=== PATIENT | male | born 1970 | race Caucasian/White ===

== ENCOUNTER 2023-12-22 09:00 | Inpatient (IN) | payer BC, SELFPAY ==
[2023-12-22] VITALS (35 sets, daily range): BP systolic 136–167; BP diastolic 70–82; PULSE 70–156; TEMP 36.7–37.5; O2SAT 93–115; BMI 27.4; BMI 30.6
--- NOTE | 2023-12-22 09:20 | ECG_ITS ---
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
--- NOTE | 2023-12-22 09:20 | XR_ITS ---
The [address] [address] Patient Name: LIDIA KHAN MRN: [id number] date: 1970 Sex: M Assigned Patient Location: ER Current Patient Location: ER Accession/Order Number: [id number] Exam Date: 12/22/2023 09:30 Report Date: 12/22/2023 10:58 At the request of: MO KHANNA Procedure: XR chest 1V EXAM: XR chest 1V HISTORY: tachy COMPARISON: None FINDINGS/IMPRESSION: 1. Lungs are clear 2. No pneumothorax. No pleural effusion. 3. Heart size and mediastinal contours are normal 4. No acute osseous abnormality Electronically authenticated by: SHAWNA LOMBARDO Date: 12/22/2023 10:58
[2023-12-22] MEDS: ASPIRIN 81 MG TAB.CHEW 162 MG PO (09:29)
[2023-12-22] MEDS: 0.9 % SODIUM CHLORIDE 1,000 ML 1000 ML IV ×2 (09:29→09:51)
[2023-12-22] MEDS: ACETAMINOPHEN 325 MG TABLET 650 MG PO (09:30)
--- NOTE | 2023-12-22 09:33 | CT_ITS ---
The [address] [address] Patient Name: LIDIA KHAN MRN: [id number] date: 1970 Sex: M Assigned Patient Location: ER Current Patient Location: ER Accession/Order Number: [id number] Exam Date: 12/22/2023 09:42 Report Date: 12/22/2023 11:06 At the request of: MO KHANNA Procedure: CT head/brain wo con EXAM: CT head/brain wo con HISTORY: headache COMPARISON: None available at the time of dictation. TECHNIQUE: Axial unenhanced CT images were obtained through the brain. Individualized dose optimization technique was used for the performed procedure by employing the following: Automated exposure control, adjustment of the mA and/or kV according to patient's size, and/or the use of the iterative construction technique. Coronal and sagittal reformats were performed. FINDINGS: No acute intracranial abnormality. No acute infarct, hemorrhage or mass. Hyperdensity at the anterior cortex of the bilateral frontal lobes, likely from beam hardening artifact. (5/20). No midline shift. Carmichael-white matter differentiation is preserved. Ventricles and sulci are normal in size. No acute osseous abnormality. Mucosal thickening of the ethmoid air cells. Mucosal thickening of the frontal sinus. Mastoid air cells are open. Orbits are normal. CT/CT head/brain wo con IMPRESSION: 1. No definitive acute intracranial abnormality. No acute intracranial infarct visualized by this modality. (MRI is more sensitive). No acute intracranial hemorrhage 2. Focal hyperdensity at the anterior cortex of the bilateral frontal lobes, likely from beam hardening artifact. (5/20). A follow-up CT in 4 hours could more definitively confirm. Electronically authenticated by: SHAWNA LOMBARDO Date: 12/22/2023 11:06
--- NOTE | 2023-12-22 09:33 | ECG_ITS ---
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
[2023-12-22 09:35] LABS: Hematocrit 43.7 % (42.0-54.0); Hemoglobin 14.7 g/dL (14.0-18.0); Mean Corpuscular HGB Conc 33.6 g/dL (29.9-35.2); Mean Corpuscular Hemoglobin 32.1 pg (25.9-34.0); Mean Corpuscular Volume 95.4 fL (80.0-94.0); Mean Platelet Volume 11.2 fL (9.5-13.5); Platelet Count 122 10^3/uL (150-450); Red Blood Count 4.58 10^6/uL (4.70-6.10); Red Cell Distribution Width 12.7 % (11.0-15.0); White Blood Count 6.3 10^3/uL (4.0-11.0)
--- NOTE | 2023-12-22 09:36 | ED.GENADUL1 ---
HPI HPI - General Adult General Chief complaint: Arrhythmia/Palpitations Stated complaint: FAST HEART RATE/ GENERAL WEAKNESS Time Seen by Provider: 12/22/23 09:19 Source: patient Mode of arrival: walk-in Limitations: no limitations History of Present Illness HPI narrative: Patient is a 53-year-old male who is presenting to the ER today with chief complaint of diffuse headache, anxiousness, heart palpitations, nausea and vomiting. Patient was at work when this occurred. Patient lives [place], he is working locally and stays in a motel during the week. Patient states that he drinks a couple beers before bedtime, no other excessive alcohol use. Patient states no illicit drug use, patient does smoke cigarettes. Patient has no chest heaviness or tightness. Patient does have abdominal hernia, patient has no significant abdominal pain. No neck pain. No history of A-fib or atrial flutter. Patient is type I diabetic. Patient was diagnosed at the age of 16 with type 1 diabetes. Patient has no rash. No other traveling of the state or country besides coming from [place] to work. Patient states he does not feel like he is in DKA, he has had DKA before. No bowel or bladder changes. Patient stated he went to bed and felt normal last night, no issues. Patient stated he did not feel perfect this morning, but a lot of his symptoms developed at work this morning. Patient denies any type of fall, no head injury. Patient's headache was not the worse headache of her life, not sudden onset, not thunderclap in nature. All systems are negative except as noted/marked. All systems reviewed and otherwise negative. Nurses note and vital signs reviewed and patient is not hypoxic. General: The patient appears well and in no apparent distress. Patient is resting comfortably on cart. Patient is not toxic, lethargic, or listless. Patient appears anxious to Cristiana RN, not sitting still, also complaining of headache to Cristiana RN. Skin: Warm, dry, no pallor noted. There is no rash noted. No petechiae, purpura. Head: Normocephalic, atraumatic, no tenderness to palpation to bilateral frontal maxillary sinuses. Full cervical range of motion with no meningeal signs or symptoms, no nuchal rigidity. Eye: Normal conjunctiva, no drainage, EOMI. PERRL Ears, Nose, Mouth, and Throat: oral mucosa is moist. Nares patent. Mouth without vesicles. Cardiovascular: Tachycardic regular Rate and Rhythm, no murmur, gallop, rub Respiratory: Patient is in no distress, no accessory muscle use, lungs are clear to auscultation, no wheezing, rales or rhonchi Back: Patient has moderate lower paralumbar soft tissue and paralumbar tenderness to palpation, no midline lumbar tenderness to palpation. No signs of abscess. No step-off. Non-tender, no CVA tenderness bilaterally to percussion. No CT LS midline pain GI: No peritoneal signs, no pulsatile mass. No tenderness to palpation, no masses appreciated. No rebound, guarding, or rigidity noted. No distention Musculoskeletal: Patient has full range of motion of all of the extremities, no motor, sensory, or focal neurological deficits Neurological: A&O x4, normal speech Psychiatric: Cooperative Related Data Home Medications ?Medication ?Instructions ?Recorded ?Confirmed blood-glucose sensor (Snapcious G6 12/22/23 12/22/23 Sensor device) blood-glucose transmitter (Snapcious 12/22/23 12/22/23 G6 Transmitter device) clonidine HCl 0.3 mg tablet 0.3 mg PO BID 12/22/23 12/22/23 omeprazole 20 mg capsule,delayed 20 mg PO DAILY 12/22/23 12/22/23 release prazosin 1 mg capsule 1 mg PO BID 12/22/23 12/22/23 Allergies Allergy/AdvReac Type Severity Reaction Status Date / Time No Known Drug Allergies Allergy Verified 12/22/23 09:04 Opioid HPI Opioid Management Most Recent Opioid Data: Last Pain Scale 8 12/22/23 09:30 Last MAR Pain Assessment 12/22/23 09:30 PFSH PFSH Social History Little interest or pleasure in doing things: not at all Feeling down, depressed, or hopeless: not at all Exam Constitutional Vital Signs, click to edit/add: Last Vital Signs Temp 98.1 F 12/22/23 09:04 Pulse 132 H 12/22/23 11:20 Resp 24 H 12/22/23 11:20 BP 144/74 H 12/22/23 11:15 Pulse Ox 96 12/22/23 11:20 O2 Del Method Room Air 12/22/23 09:20 Course Vital Signs Vital signs: Vital Signs Temperature 98.1 F 12/22/23 09:04 Pulse Rate 148 H 12/22/23 09:04 Respiratory Rate 18 12/22/23 09:04 Blood Pressure 146/73 H 12/22/23 09:04 Pulse Oximetry 98 12/22/23 09:04 Oxygen Delivery Method Room Air 12/22/23 09:04 Temperature 98.1 F 12/22/23 09:04 Pulse Rate 132 H 12/22/23 11:20 Respiratory Rate 24 H 12/22/23 11:20 Blood Pressure 144/74 H 12/22/23 11:15 Pulse Oximetry 96 12/22/23 11:20 Oxygen Delivery Method Room Air 12/22/23 09:20 Medical Decision Making MDM Narrative Medical decision making narrative: Patient's heart rates in the 140s, patient will be given 2 L of IV fluid, patient slightly anxious, IV Ativan has been ordered. CT of the head was ordered along with DKA workup. Patient is insulin diabetic. Patient does not believe that he is in DKA. 1045 Patient has had 2 L of IV fluid, 1 mg of Ativan. Patient's heart rate remains in the 140s, it has not changed. Will not be given a bolus of Cardizem, patient may be in a flutter. Patient's magnesium is 1.3, patient has received IV magnesium treatment as well. Patient's acetone negative, pH within normal limits, 1145 I have spoken to Dr. Hernandez, patient is admitted to the intensive care unit for tachycardia with not a clear etiology. Patient magnesium was 1.3, he had IV replacement of magnesium. Patient was given a dose of Ativan. Patient alcohol level was 0.086. Patient only admitted to drinking 2 beers before bedtime, patient could be going through alcohol withdrawal. Patient came to the ER from work. Patient has had a significant workup with no significant findings. Patient is currently receiving his third liter of IV fluid. I had discussed with Dr. Hernandez possible giving him a dose of Lopressor, she will also consult cardiology. Patient will be admitted to the ICU. Urine drug screen is still pending at admission. If urine drug screen shows no cocaine, Dr. Hernandez may give IV Lopressor second EKG is done, Sinus tachycardia at 129. Normal axis deviation. No acute ST elevation, no acute ectopy. QTc of 384 EKG appears to be sinus tachycardia, not completely excluding a flutter. P waves noted. Critical care time 35 minutes exclusive from separate billable procedures that were performed. The following was considered in the determination of critical care but not limited to the level of medical decision making, intensive cardiac and/or respiratory monitoring, frequent vital sign monitoring, evaluation of laboratory studies, evaluation of radiographic studies, oxygen monitoring, and constant monitoring and speaking to family at bedside Lab Data Lab results reviewed: Yes I reviewed the patient's lab results Labs: Lab Results 12/22/23 12/22/23 Range/Units 09:15 09:40 WBC 6.3 (4.0-11.0) 10^3/uL RBC 4.58 L (4.70-6.10) 10^6/uL Hgb 14.7 (14.0-18.0) g/dL Hct 43.7 (42.0-54.0) % MCV 95.4 H (80.0-94.0) fL MCH 32.1 (25.9-34.0) pg MCHC 33.6 (29.9-35.2) g/dL RDW 12.7 (11.0-15.0) % Plt Count 122 L (150-450) 10^3/uL MPV 11.2 (9.5-13.5) fL Seg Neuts % (Manual) 85.0 H (43.0-75.0) Lymphocytes % (Manual) 9.0 L (20.5-60.0) % Monocytes % (Manual) 6.0 (1.7-12.0) % Eosinophils % (Manual) 0.0 L (0.9-7.0) % Basophils % (Manual) 0.0 L (0.2-2.0) % Neutrophils # (Manual) 5.35 (1.4-6.5) 10^3/uL Lymphocytes # (Manual) 0.56 L (1.20-3.80) 10^3/uL Monocytes # (Manual) 0.37 (0.30-0.80) 10^3/uL Eosinophils # (Manual) 0.00 (0.00-0.70) 10^3/uL Basophils # (Manual) 0.00 (0.00-0.10) 10^3/uL PT 9.8 (9.0-11.6) sec INR <0.93 APTT 22.8 (22.3-36.2) sec D-Dimer 0.59 (<=0.59) mg/L FEU VBG pH 7.330 (7.330-7.430) VBG pCO2 30.0 L (40.0-52.0) mmHg Sodium 138 (136-145) mmol/L Potassium 4.5 (3.5-5.1) mmol/L Chloride 98 (98-107) mmol/L Carbon Dioxide 20.0 L (21.0-32.0) mmol/L Anion Gap 24.5 BUN 14.0 (7.0-18.0) mg/dL Creatinine 0.98 (0.70-1.30) mg/dL Est GFR ( Amer) >60 (>=60) Est GFR (Non-Af Amer) >60 (>=60) BUN/Creatinine Ratio 14.3 Glucose 313 H (74-106) mg/dL Calcium 9.5 (8.5-10.1) mg/dL Magnesium 1.3 L (1.8-2.4) mg/dL Total Bilirubin 0.8 (0.2-1.0) mg/dL AST 32 (15-37) U/L ALT 19 (16-63) U/L Alkaline Phosphatase 59 (46-116) U/L Total Creatine Kinase 110 (39-308) U/L Troponin I High Sens 33.2 (4.0-76.1) pg/mL NT-Pro-B Natriuret Pep 159.0 (<=900.0) pg/mL Total Protein 7.0 (6.4-8.2) g/dL Albumin 3.9 (3.4-5.0) g/dL Globulin 3.1 g/dL Albumin/Globulin Ratio 1.3 TSH 0.614 (0.358-3.740) uIU/mL Ethanol Quant 86 mg/dL Acetone, Qual Negative (NEGATIVE) SARS-CoV-2 Ag (CV2AG) Negative (NEGATIVE) ECG Data Attestation: I personally reviewed and interpreted this ECG as follows: (EKG interpretation. Sinus tachycardia at 146 beats a minute. Normal axis deviation. No acute ST elevation, no acute ectopy. QTc of 366) Discharge Plan Discharge Chief Complaint: Arrhythmia/Palpitations Clinical Impression: Palpitations, Sinus tachycardia, Hypomagnesemia Patient Disposition: Admitted As Inpatient Time of Disposition Decision: 11:35
[2023-12-22 09:42] LABS: D Dimer 0.59 mg/L FEU (<=0.59); Partial Thromboplastin Time 22.8 sec (22.3-36.2); Prothrombin Time 9.8 sec (9.0-11.6)
[2023-12-22] MEDS: MAGNESIUM SULFATE IN WATER 2 GM/50 ML PREMIX IV (09:51)
[2023-12-22] MEDS: ONDANSETRON PF 4 MG/2 ML VIAL IV ×2 (09:51→15:51)
[2023-12-22] MEDS: LORAZEPAM 2 MG/ML VIAL 1 MG IV (09:51)
[2023-12-22 10:01] LABS: Acetone NEGATIVE (NEGATIVE); Alanine Aminotransferase 19 U/L (16-63); Albumin Globulin Ratio 1.3; Albumin Level 3.9 g/dL (3.4-5.0); Alkaline Phosphatase 59 U/L (46-116); Anion Gap 24.5; Aspartate Amino Transferase 32 U/L (15-37); BUN Creatinine Ratio 14.3; Bilirubin Total 0.8 mg/dL (0.2-1.0); Calcium 9.5 mg/dL (8.5-10.1); Chloride 98 mmol/L (98-107); Estimated GFR (African America >60 (>=60); Estimated GFR (Non-African Ame >60 (>=60); Globulin 3.1 g/dL; Glucose 313 mg/dL (74-106); Potassium 4.5 mmol/L (3.5-5.1); Sodium 138 mmol/L (136-145); Thyroid Stimulating Hormone 0.614 uIU/mL (0.358-3.740); Troponin I High Sensitivity 33.2 pg/mL (4.0-76.1)
[2023-12-22 10:02] LABS: Internal Control Within Normal Limits; SARS-CoV-2 Ag NEGATIVE (NEGATIVE)
[2023-12-22 10:03] LABS: Creatine Kinase 110 U/L (39-308); Magnesium 1.3 mg/dL (1.8-2.4)
[2023-12-22 10:09] LABS: Lymphocytes Absolute Manual 0.56 10^3/uL (1.20-3.80); Monocytes Absolute Manual 0.37 10^3/uL (0.30-0.80); Segmented Neut Absolute Manual 5.35 10^3/uL (1.4-6.5)
[2023-12-22 10:20] LABS: INR <0.93
[2023-12-22] MEDS: DILTIAZEM HCL 25 MG/5 ML VIAL 15 MG IV (10:48)
[2023-12-22 11:17] LABS: Ethanol 86 mg/dL
[2023-12-22] MEDS: 0.9 % SODIUM CHLORIDE 1,000 ML 999 ML IV (11:20)
[2023-12-22 11:48] LABS: Amphetamine Screen Urine NEGATIVE (NEGATIVE); Barbiturates Screen Urine NEGATIVE (NEGATIVE); Benzodiazepines Screen Urine NEGATIVE (NEGATIVE); Buprenorphine Screen Urine NEGATIVE (NEGATIVE); Cannabinoid Screen Urine NEGATIVE (NEGATIVE); Cocaine Screen Urine NEGATIVE (NEGATIVE); Methadone Screen Urine NEGATIVE (NEGATIVE); Methamphetamines Screen Urine NEGATIVE (NEGATIVE); Opiate Screen Urine NEGATIVE (NEGATIVE); Oxycodone Screen Urine NEGATIVE (NEGATIVE); Phencyclidine Screen Urine NEGATIVE (NEGATIVE); Tricyclic Antidepressant Urine NEGATIVE (NEGATIVE)
--- NOTE | 2023-12-22 12:05 | P.HP_ITS ---
HPI H&P: HPI History of Present Illness Chief complaint: FAST HEART RATE/ GENERAL WEAKNESS/ TACHYCARDIA Narrative: Patient is a 53 y.o white male with past medical history of IDDM type 1 with insulin pump, HTN, Alcoholism, tobacco use, who presented to the ER today after 3 episodes of vomiting, heart palpitations/heart racing, nausea, headache. 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 He has been staying in a hotel in [place] during this time. 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 He has been drinking heavier than usual since he is away from home. He denies any other illicit drug use. He denies any heart or lung problems. Both parents are from heart related issues. ER findings: Glucose 313 with anion Gap 24, D-dimer normal range, Cr 0.98, mg 1.3, trop 33, proBNP 159, TSH normal, Blood Acetone negative, Blood alcohol level was 86, UDS negative, Chest X-ray and CT head negative. Patient had HR 140's, given Cardizem bolus, Lopressor 5mg x 1 and 3L of IVF. Covid and flu testing are negative. Opioid HPI Opioid Management Most Recent Pain and Opioid Data: Last Pain Scale 3 12/22/23 13:00 Last Pain Assessment 12/22/23 13:00 Last MAR Pain Assessment 12/22/23 09:30 Last ORT Total Score 3 12/22/23 12:45 Last ORT Risk Category Low Risk 12/22/23 12:45 Ur Phencyclidine Scrn Negative (NEGATIVE) 12/22/23 11:14 Review of Systems ROS Narrative ROS: a complete review of systems were reviewed with patient and are positive as below or listed in History of Chief Complaint. General:fever, chills, night sweats Head: headache, no trauma, no visual changes Skin: no reported rashes, itching or sores Eyes: no blurriness of vision Ears: no reported hearing loss, vertigo, earache, or tinnitus Throat: no sore throat, hoarseness, swelling of neck, or tongue pain Heart: no chest pain Lungs: no shortness of breath or cough GI: no diarrhea but vomiting/nausea Urinary: no urinary urgency, frequency or pain Neuro: no numbness or tingling HEM: no bleeding issues or bruising ENDO: no thyroid problems Psych: no anxiety or depression PFSH PFSH Medical History (Updated 12/22/23 @ 14:09 by Alicja Hernandez DO) Essential (primary) hypertension ?I10 - Essential (primary) hypertension (ICD-10) DKA, type 1 ?E10.10 - Type 1 diabetes mellitus with ketoacidosis without coma (ICD-10) Type 1 diabetes ?E10.9 - Type 1 diabetes mellitus without complications (ICD-10) Social History Highest level of school completed/degree received: high school graduate Little interest or pleasure in doing things: not at all Feeling down, depressed, or hopeless: not at all Meds Home Medications and Allergies Home Medications ?Medication ?Instructions ?Recorded ?Confirmed ?Type blood-glucose sensor (Dexcom G6 12/22/23 12/22/23 History Sensor device) blood-glucose transmitter (Dexcom 12/22/23 12/22/23 History G6 Transmitter device) clonidine HCl 0.3 mg tablet 0.3 mg PO BID 12/22/23 12/22/23 History insulin pump cart,automated,BT 12/22/23 12/22/23 History (Omnipod 5 G6 Pods (Gen 5) subcutaneous cartridge) omeprazole 20 mg capsule,delayed 20 mg PO DAILY 12/22/23 12/22/23 History release prazosin 1 mg capsule 1 mg PO BID 12/22/23 12/22/23 History Allergies Allergy/AdvReac Type Severity Reaction Status Date / Time No Known Drug Allergies Allergy Verified 12/22/23 09:04 Exam Narrative Exam Narrative: General: Patient is alert, and oriented to person, place and time with normal affect, proper hygiene, appears tremulous on exam Skin: no visible rashes, or ulcers Head: atraumatic, acephalic Eyes: PERRLA, no nystagmus present, conjunctiva clear, no scleral icterus Ears: normal Tympanic Membrane, normal gross auditory acuity Nose: symmetric, no discharge, no maxillary or frontal sinus tenderness Mouth/Throat: no erythema, exudate, or tonsillar enlargement,poor dentition Neck: no masses palpated, normal thyroid Heart: increased rate and normal rhythm, no murmurs/rubs/gallops Lungs: no audible wheezes, crackles and normal breath sounds all lung damico Abdomen: Normal audible bowel sounds, no distension, No palpable masses, no organomegaly, slight diffuse tenderness with palpation Musculoskeletal: no swelling bilateral lower extremities Neuro: CN II-X grossly intact Constitutional Vital Signs, click to edit/add: Last Vital Signs Temp 98.1 F 12/22/23 09:04 Pulse 132 H 12/22/23 11:20 Resp 24 H 12/22/23 11:20 BP 144/74 H 12/22/23 11:15 Pulse Ox 96 12/22/23 11:20 O2 Del Method Room Air 12/22/23 09:20 Results Labs Labs: Short CBC 12/22/23 Range/Units 09:15 WBC 6.3 (4.0-11.0) 10^3/uL Hgb 14.7 (14.0-18.0) g/dL Hct 43.7 (42.0-54.0) % Plt Count 122 L (150-450) 10^3/uL BMP 12/22/23 09:15 Sodium 138 Potassium 4.5 Chloride 98 Carbon Dioxide 20.0 L BUN 14.0 Creatinine 0.98 Glucose 313 H Calcium 9.5 Cardiac Enzymes 12/22/23 Range/Units 09:15 Total Creatine Kinase 110 (39-308) U/L Liver Function 12/22/23 Range/Units 09:15 Total Bilirubin 0.8 (0.2-1.0) mg/dL AST 32 (15-37) U/L ALT 19 (16-63) U/L Alkaline Phosphatase 59 (46-116) U/L Albumin 3.9 (3.4-5.0) g/dL ABG ABG results: 12/22/23 09:40 VBG pH 7.330 VBG pCO2 30.0 L Assessment and Plan Assessment and Plan (1) Dehydration: Assessment and Plan: resusitative IVF, patient has received 3L, will continue with LR @150. Lactate normal, WBC's normal and renal function. Most likely from virus causing n/v. Covid and flu negative. monitor electrolytes (2) Hyperglycemia due to type 1 diabetes mellitus: Assessment and Plan: Patient with insulin pump, will continue infusions for now, recheck labs in 1 hour, if AG still elevated despite IVF will stop pump and place on insulin drip. could be approaching Hyperosmolar Hyperglycemia state, blood negative for ketones/acetones but glucose was 313. Patient on clears, recheck ha1c in the morning (3) Alcoholism: Assessment and Plan: etoh level 86. Seizure precautions, CIWA score q4 hours with PRN ATivan IV. cont inue folate and thiamine (4) Sinus tachycardia: Assessment and Plan: BP stable, restart clonidine, was given Lopressor, cardizem. Could be alcohol withdrawal or significant dehydration and HHS. Monitor. EKG showed sinus tachycardia. Trop and proBNP normal. UDS negative for cocaine or amphetamines. (5) Hypomagnesemia: Assessment and Plan: replaced IV, recheck (6) Essential (primary) hypertension: Assessment and Plan: continue clonidine. Plan Patient is a full code Lovenox for DVT prophylaxis Patient is inpatient status and is expected to stay 2-3 days to treat his hyperglycemia and dehydration.
[2023-12-22] MEDS: METOPROLOL TARTRATE 5 MG/5 ML VIAL IVP (12:08)
--- NOTE | 2023-12-22 12:21 | PC.NURSE ---
In to reassess patient, this RN asked patient how many drinks were drank last night. Pt states I don't know maybe 3-4 beers This RN asked if that is normal or if liquor is drank too. Pt states I typically have a few beers with a few shots of vodka. This RN asked patient if thats what was drank last night and patient states you know now that you mention it, I do remember going across the street to the bar for a few drinks. Pt states having 4 beers with a few shots of vodka, unsure of exact amount.
[2023-12-22 12:32] LABS: Influenza Virus A Antigen Negative; Influenza Virus B Antigen Negative; Internal Control Within Normal Limits
[2023-12-22] MEDS: LACTATED RINGER'S SOLUTION 1,000 ML 150 ML IV ×2 (13:00→19:35)
[2023-12-22] MEDS: MULTIVIT INFUSN,ADULT 4,VIT K 10 ML, FOLIC ACID 1 MG, THIAMINE HCL 100 MG in DEXTROSE 5... 250 ML IV (14:06)
[2023-12-22 15:37] LABS: Alanine Aminotransferase 20 U/L (16-63); Albumin Globulin Ratio 1.2; Albumin Level 3.6 g/dL (3.4-5.0); Alkaline Phosphatase 57 U/L (46-116); Anion Gap 22.2; Aspartate Amino Transferase 29 U/L (15-37); BUN Creatinine Ratio 15.5; Bilirubin Total 1.3 mg/dL (0.2-1.0); Calcium 8.7 mg/dL (8.5-10.1); Carbon Dioxide 18.3 mmol/L (21.0-32.0); Chloride 99 mmol/L (98-107); Estimated GFR (African America >60 (>=60); Estimated GFR (Non-African Ame >60 (>=60); Glucose 382 mg/dL (74-106); Potassium 5.5 mmol/L (3.5-5.1); Sodium 134 mmol/L (136-145); Total Protein 6.6 g/dL (6.4-8.2)
[2023-12-22 15:48] LABS: Magnesium 1.8 mg/dL (1.8-2.4)
[2023-12-22 15:49] LABS: Troponin I High Sensitivity 81.1 pg/mL (4.0-76.1)
[2023-12-22] MEDS: INSULIN REGULAR IN 0.9 % NACL 100 UNIT/100 ML PLAST..BAG 9.13 UNIT IV (16:40)
[2023-12-22 17:04] LABS: Glucometer 369 mg/dL (74-106)
[2023-12-22 18:06] LABS: Glucometer 319 mg/dL (74-106)
[2023-12-22] MEDS: CLONIDINE HCL 0.1 MG TABLET 0.3 MG PO (20:12)
[2023-12-22] MEDS: OMEPRAZOLE 20 MG CAPSULE.DR PO (20:12)
[2023-12-22] MEDS: TERAZOSIN HCL 1 MG CAPSULE PO (20:12)
--- NOTE | 2023-12-22 20:27 | PC.NURSE ---
FBSB - 289 on pt's Dexicom. CIWA - 9. Pt continues to yell out Damn , and Holy hell , due to ABD discomfort and stated heart burn . Pt was medicated with X1 dose of Prilosec as ordered. Pt cautioned that medication would take time to take effect due to being an oral medication, and to wait to eat if eating and drinking was causing him discomfort and making the pain worse. Pt declined advice and continued to eat and drink, causing increase in ABD discomfort and yelling out.
--- NOTE | 2023-12-22 20:32 | PC.NURSE ---
Lab personnel, Libby, notified of pt's refusal to allow ordered labs to be drawn at this time.
[2023-12-22] MEDS: LORAZEPAM 2 MG/ML VIAL IV (21:38)
--- NOTE | 2023-12-22 22:18 | PC.NURSE ---
IVF and Insulin gtt held for 15 minutes. R FA IV flushed with 10ml NS flush, then 10mls of blood wasted prior to lab drawn. Pt agreeable to labs being drawn this way. Blood drawn for analysis and sent to lab.
[2023-12-22 22:40] LABS: Anion Gap 8.6; BUN Creatinine Ratio 15.6; Calcium 8.4 mg/dL (8.5-10.1); Carbon Dioxide 27.5 mmol/L (21.0-32.0); Chloride 102 mmol/L (98-107); Estimated GFR (African America >60 (>=60); Estimated GFR (Non-African Ame >60 (>=60); Glucose 178 mg/dL (74-106); Magnesium 1.8 mg/dL (1.8-2.4); Potassium 4.1 mmol/L (3.5-5.1); Sodium 134 mmol/L (136-145)
[2023-12-22 22:53] LABS: Troponin I High Sensitivity 52.4 pg/mL (4.0-76.1)
[2023-12-22] MEDS: DEXTROSE 5%-LACTATED RINGERS 1,000 ML 100 ML IV (23:00)
[2023-12-23] VITALS (7 sets, daily range): BP systolic 126–163; BP diastolic 81–91; PULSE 84–108; TEMP 36.4–36.6; O2SAT 69–97
--- NOTE | 2023-12-23 02:50 | PC.NURSE ---
Noted Pt's POX to be 77% on RA with good pleth. Pt continues to display sonorous respirations with intermittent display of respiratory pauses/sleep apnea. Pt placed on 2L NC. Respiratory notified.
[2023-12-23] MEDS: INSULIN REGULAR IN 0.9 % NACL 100 UNIT/100 ML PLAST..BAG 9.13 UNIT IV (04:30)
--- NOTE | 2023-12-23 05:42 | PC.NURSE ---
IVF and Insulin gtt held for 15 minutes. R FA IV site flushed with 10mls of NS, then 10mls of blood withdrawn as waste. Blood for AM Labs drawn from IV site, and site then flushed without incident, complaint or infiltration. Fluids and gtt restarted. Pt tolerated well.
[2023-12-23] MEDS: OMEPRAZOLE 20 MG CAPSULE.DR PO (06:09)
[2023-12-23 06:29] LABS: Basophils Percent Auto 0.4 % (0.2-2.0); Eosinophils Absolute Auto 0.1 10^3/uL (0.0-0.7); Eosinophils Percent Auto 1.4 % (0.9-7.0); Hematocrit 37.3 % (42.0-54.0); Hemoglobin 12.7 g/dL (14.0-18.0); Immature Granulocytes Abs Auto 0.03 10^3/uL (0.00-0.03); Immature Granulocytes Pct Auto 0.4 % (0.0-0.5); Lymphocytes Absolute Auto 0.8 10^3/uL (1.2-3.8); Lymphocytes Percent Auto 9.7 % (20.5-60.0); Mean Corpuscular Hemoglobin 31.7 pg (25.9-34.0); Mean Platelet Volume 11.5 fL (9.5-13.5); Monocytes Absolute Auto 1.2 10^3/uL (0.3-0.8); Monocytes Percent Auto 14.5 % (1.7-12.0); Neutrophils Absolute Auto 6.2 10^3/uL (1.4-6.5); Neutrophils Percent Auto 73.6 % (43.0-75.0); Platelet Count 125 10^3/uL (150-450); Red Blood Count 4.01 10^6/uL (4.70-6.10); Red Cell Distribution Width 12.7 % (11.0-15.0); White Blood Count 8.4 10^3/uL (4.0-11.0)
[2023-12-23 06:39] LABS: Magnesium 1.6 mg/dL (1.8-2.4)
--- NOTE | 2023-12-23 06:43 | CA_ITS ---
Patient Name: LIDIA KHAN MR#: [id number] : 1970 Exam Date: 12/23/2023 Ordering Doctor: CHRISTIANO TERESA . ECHOCARDIOGRAM REPORT PROCEDURE: CA ECHO DOPPLER COMPLETE INDICATIONS: tachycardia, positive trop COMPARISON: None. DESCRIPTION: COMPLETE ECHOCARDIOGRAM Real-time transthoracic echocardiography with 2D, M-mode, spectral and color flow Doppler performed. QUALITY: Technical quality was good. LEFT VENTRICLE: Normal chamber size. Mild concentric left ventricular hypertrophy. LV EF: Global left ventricular systolic function is normal. Calculated left ventricular ejection fraction is 63%. No obvious wall motion abnormalities. DIASTOLIC: Normal diastolic function. ATRIAL SEPTUM: Inadequately seen. LEFT ATRIUM: Normal chamber size. RIGHT ATRIUM: Normal chamber size. RIGHT VENTRICLE: Normal chamber size. Normal right ventricular systolic function. TRICUSPID VALVE: Normal mobility and thickness. No stenosis with trivial regurgitation. Mild pulmonary hypertension. RVSP 39mmHg MITRAL VALVE: Normal mobility and thickness. No evidence of mitral valve stenosis. Mild mitral annular calcification. Trivial mitral regurgitation. AORTIC VALVE: Normal trileaflet appearance. No visible sclerosis. Normal leaflet mobility. No evidence of aortic valve stenosis. Trivial aortic regurgitation. AORTIC ROOT: Normal diameter and appearance. PULMONIC VALVE: Normal thickness and mobility. No stenosis. No regurgitation. PERICARDIUM: Anterior free space; trivial effusion versus fat pad IVC: Collapses with inspirations. Normal size CONCLUSION: 1. Global left ventricular systolic function is normal; visually estimated ejection fraction is 60 to 65% 2. Normal right ventricular size and systolic function 3. Mild left ventricular hypertrophy 4. Normal diastolic function 5. Mildly elevated right ventricular systolic pressure; RVSP 39 mmHg 6. No significant valvular abnormalities 7. Anterior free space; trivial effusion versus fat pad Adult Echocardiography Procedure Report Left Ventricle LVEDD (3.7 - 5.6 cm): 5.11 cm LVESD (2.2 - 4.0 cm): 3.36 cm LVIVS thickness (0.6 - 1.2 cm): 1.18 cm LVPW thickness (0.5 - 1.0 cm): 1.12 cm e': 0.12 m/s E - e': 6.07 LVOT Max Gradient: 5.72 mm[Hg] LVOT Area (cm2): 1.20 m/s Peak Velocity (LVOT): 1.20 m/s Mean Velocity (LVOT): 0.74 m/s LVOT Diameter 2.26 cm Left Ventricular Ejection Fraction: 62.61 % Left Atrium Left Atrium Systolic Dimension: 4.03 cm Mitral Valve MV E to A Ratio: 1.44, 1.39 Mitral Valve A-Wave Peak Velocity: 0.52 m/s Mitral Valve E-Wave Peak Velocity: 0.73 m/s Right Ventricle RV Internal Diastolic Dimension: 4.13 cm Aorta AO Root Diam: 3.60 cm Ascending Ao Diam: 2.96 cm Aortic Valve AoV Area (Peak Virgil): 3.21 cm2, 3.13 cm2 AoV Area (VTI): 3.16 cm2, 3.17 cm2 Peak Velocity(Antegrade Flow): 1.54 m/s, 1.46 m/s Peak Gradient(Antegrade Flow): 9.43 mm[Hg], 8.48 mm[Hg] Mean Velocity(Antegrade Flow): 1.02 m/s, 0.99 m/s Mean Gradient(Antegrade Flow): 4.71 mm[Hg], 4.49 mm[Hg] Velocity Time Integral: 28.60 cm, 28.86 cm Tricuspid Valve Peak Velocity (Regurgitant Flow): 2.72 m/s, 2.98 m/s Pulmonic Valve Mean Gradient: 3.65 mm[Hg], 3.23 mm[Hg] Mean Velocity: 0.91 m/s, 0.87 m/s Peak Velocity: 1.22 m/s Peak Gradient: 6.15 mm[Hg], 5.76 mm[Hg] Right Atrium Right Atrium Systolic Pressure: 72.54 ml, 72.54 ml Dictated by: Jimmy Kaur M.D. on 12/24/2023 at 14:41 Approved by: Jimmy Kaur M.D. on 12/24/2023 at 14:45
[2023-12-23 06:45] LABS: Estimated Average Glucose 131 mg/dL; Glycohemoglobin A1C 6.2 % (4.5-6.2)
[2023-12-23 06:49] LABS: Troponin I High Sensitivity 38.5 pg/mL (4.0-76.1)
[2023-12-23 06:54] LABS: Alanine Aminotransferase 19 U/L (16-63); Albumin Globulin Ratio 1.1; Alkaline Phosphatase 43 U/L (46-116); Anion Gap 11.4; Aspartate Amino Transferase 25 U/L (15-37); Bilirubin Total 1.1 mg/dL (0.2-1.0); Calcium 8.7 mg/dL (8.5-10.1); Carbon Dioxide 26.6 mmol/L (21.0-32.0); Chloride 106 mmol/L (98-107); Chol HDL Ratio 1.3; Cholesterol 146 mg/dL (<=200); Estimated GFR (African America >60 (>=60); Estimated GFR (Non-African Ame >60 (>=60); Globulin 2.7 g/dL; Glucose 112 mg/dL (74-106); HDL Cholesterol 109 mg/dL (40-60); Sodium 140 mmol/L (136-145); Total Protein 5.7 g/dL (6.4-8.2); Triglycerides 58 mg/dL (<=150); VLDL CHOLESTEROL 11.6 mg/dL
[2023-12-23] MEDS: MULTIVITAMIN TABLET 1 TAB PO (08:18)
[2023-12-23] MEDS: THIAMINE MONONITRATE (VIT B1) 100 MG TABLET PO (08:18)
[2023-12-23] MEDS: TERAZOSIN HCL 1 MG CAPSULE PO (08:18)
[2023-12-23] MEDS: FAMOTIDINE/PF 20 MG/2 ML VIAL IV (08:18)
[2023-12-23] MEDS: SUCRALFATE 1 GM TABLET PO (08:19)
[2023-12-23] MEDS: CLONIDINE HCL 0.1 MG TABLET 0.3 MG PO (08:21)
--- NOTE | 2023-12-23 08:25 | PM.DS1 ---
DS: Providers Provider Date of admission: 12/22/23 12:37 Primary care physician: Non-Staff Physician, Admitting clinician: Alicja Hernandez Attending physician on discharge: Alicja Hernandez DS: Diagnosis Discharge Diagnosis (1) Dehydration: (2) Hyperglycemia due to type 1 diabetes mellitus: (3) Alcoholism: (4) Sinus tachycardia: (5) Hypomagnesemia: (6) Essential (primary) hypertension: DS: Summary Hospital Course Hospital Course: Patient is a 53 y.o white male with past medical history of IDDM type 1 with insulin pump, HTN, Alcoholism, tobacco use, who presented to the ER today after 3 episodes of vomiting, heart palpitations/heart racing, nausea, headache. He is from [place], [place] and has been up here working in the [employer] for 2 weeks. He has been staying in a hotel in [place] during this time. 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 He has been drinking heavier than usual since he is away from home. He denies any other illicit drug use. He denies any heart or lung problems. Both parents are from heart related issues. ER findings: Glucose 313 with anion Gap 24, D-dimer normal range, Cr 0.98, mg 1.3, trop 33, proBNP 159, TSH normal, Blood Acetone negative, Blood alcohol level was 86, UDS negative, Chest X-ray and CT head negative. Patient had HR 140's, given Cardizem bolus, Lopressor 5mg x 1 and 3L of IVF. Covid and flu testing are negative. Patient received 3L IVF and still with persistent AG 26, and elevated glucose of 300's. Insulin pump stopped and patient placed on insulin drip as appeared more DKA picture. Tachycardia resolved, AG at the time of discharge was 8, sugars 170's. Patient resumed his insulin pump. Patient felt much better at the time of discharge. Did complain of some heart burn symptoms but was given omeprazole and pepcid which helped. I encouraged him to get some pepcid OTC to take in addition to his omeprazole for 7 days. I also encouraged him to avoid alcohol. Echocardiogram was obtained but not resulted. I told him his PCP could request results at his follow up appointment in [facility]. Troponins have resulted back normal x 3, normal proBNP. renal function and chest X-ray negative. Covid and flu testing negative. Discussed he was dehydrated from a GI virus that caused his DKA state. Now that his labs are normal he feels great and is ready for discharge. No overnight events on Telemetry. Patient was in NSR with normal rate at discharge. I discussed staying off work until Thursday. He may return to the ER with any worsening signs or symptoms. Patient recovered faster than anticipated given his presentation and HR. Status at Discharge Functional status at discharge: independent ambulation Overall status at discharge: patient is back to baseline Time Spent with Patient Time attestation: Total time spent providing and/or coordinating discharge services: Time spent: greater than 30 minutes Exam Narrative Exam Narrative: General: Patient is alert, and oriented to person, place and time with normal affect, proper hygiene Skin: no visible rashes, or ulcers Head: atraumatic, acephalic Eyes: PERRLA, no nystagmus present, conjunctiva clear, no scleral icterus Ears: normal gross auditory acuity Heart: Normal rate and rhythm, no murmurs/rubs/gallops Lungs: no audible wheezes, crackles and normal breath sounds all lung damico Abdomen: Normal audible bowel sounds, no distension, No palpable masses, no organomegaly, no rebound/guarding/ or rigidity Musculoskeletal: no swelling bilateral lower extremities Neuro: CN II-X grossly intact Constitutional Vital Signs, click to edit/add: Last Vital Signs Temp 97.9 F 12/23/23 03:57 Pulse 88 12/23/23 06:00 Resp 14 12/23/23 04:00 BP 163/88 H 12/23/23 04:00 Pulse Ox 97 12/23/23 06:00 O2 Del Method Nasal Cannula 12/23/23 03:57 O2 Flow Rate 2 12/23/23 03:57 DS: Data Data Completed and Pending Labs on day of discharge: Labs from last 24 hours 12/23/23 12/22/23 12/22/23 05:36 22:15 18:04 WBC 8.4 RBC 4.01 L Hgb 12.7 L Hct 37.3 L MCV 93.0 MCH 31.7 MCHC 34.0 RDW 12.7 Plt Count 125 L MPV 11.5 Neut % (Auto) 73.6 Lymph % (Auto) 9.7 L [place] % (Auto) 14.5 H Eos % (Auto) 1.4 Baso % (Auto) 0.4 Neut # (Auto) 6.2 Lymph # (Auto) 0.8 L [place] # (Auto) 1.2 H Eos # (Auto) 0.1 Baso # (Auto) 0.0 Abs Immat Gran (auto) 0.03 Seg Neuts % (Manual) Lymphocytes % (Manual) Monocytes % (Manual) Eosinophils % (Manual) Basophils % (Manual) Imm/Tot Granulo (auto) 0.4 Neutrophils # (Manual) Lymphocytes # (Manual) Monocytes # (Manual) Eosinophils # (Manual) Basophils # (Manual) PT INR APTT D-Dimer VBG pH VBG pCO2 Sodium 140 134 L Potassium 4.0 4.1 Chloride 106 102 Carbon Dioxide 26.6 27.5 Anion Gap 11.4 8.6 BUN 13.0 15.0 Creatinine 0.62 L 0.96 Est GFR ( Amer) >60 >60 Est GFR (Non-Af Amer) >60 >60 BUN/Creatinine Ratio 21.0 15.6 Glucose 112 H 178 H Estimat Average Glucose 131 Hemoglobin A1c 6.2 Calcium 8.7 8.4 L Magnesium 1.6 L 1.8 Total Bilirubin 1.1 H AST 25 ALT 19 Alkaline Phosphatase 43 L Total Creatine Kinase Troponin I High Sens 38.5 52.4 NT-Pro-B Natriuret Pep Total Protein 5.7 L Albumin 3.0 L Globulin 2.7 Albumin/Globulin Ratio 1.1 Triglycerides 58 Cholesterol 146 LDL Cholesterol, Calc 26.0 VLDL Cholesterol 11.6 HDL Cholesterol 109 H Cholesterol/HDL Ratio 1.3 TSH Urine Opiates Screen Ur Buprenorphine Scrn Ur Oxycodone Screen Urine Methadone Screen Ur Barbiturates Screen U Tricyclic Antidepress Ur Phencyclidine Scrn Ur Amphetamines Screen U Methamphetamines Scrn U Benzodiazepines Scrn Urine Cocaine Screen U Cannabinoids Screen Ethanol Quant Acetone, Qual Influenza Type A Ag Influenza Type B Ag SARS-CoV-2 Ag (CV2AG) POC Glucose 319 H 12/22/23 12/22/23 12/22/23 16:58 15:08 11:14 WBC RBC Hgb Hct MCV MCH MCHC RDW Plt Count MPV Neut % (Auto) Lymph % (Auto) [place] % (Auto) Eos % (Auto) Baso % (Auto) Neut # (Auto) Lymph # (Auto) [place] # (Auto) Eos # (Auto) Baso # (Auto) Abs Immat Gran (auto) Seg Neuts % (Manual) Lymphocytes % (Manual) Monocytes % (Manual) Eosinophils % (Manual) Basophils % (Manual) Imm/Tot Granulo (auto) Neutrophils # (Manual) Lymphocytes # (Manual) Monocytes # (Manual) Eosinophils # (Manual) Basophils # (Manual) PT INR APTT D-Dimer VBG pH VBG pCO2 Sodium 134 L Potassium 5.5 H Chloride 99 Carbon Dioxide 18.3 L Anion Gap 22.2 BUN 16.0 Creatinine 1.03 Est GFR ( Amer) >60 Est GFR (Non-Af Amer) >60 BUN/Creatinine Ratio 15.5 Glucose 382 H Estimat Average Glucose Hemoglobin A1c Calcium 8.7 Magnesium 1.8 Total Bilirubin 1.3 H AST 29 ALT 20 Alkaline Phosphatase 57 Total Creatine Kinase Troponin I High Sens 81.1 H* NT-Pro-B Natriuret Pep Total Protein 6.6 Albumin 3.6 Globulin 3.0 Albumin/Globulin Ratio 1.2 Triglycerides Cholesterol LDL Cholesterol, Calc VLDL Cholesterol HDL Cholesterol Cholesterol/HDL Ratio TSH Urine Opiates Screen Negative Ur Buprenorphine Scrn Negative Ur Oxycodone Screen Negative Urine Methadone Screen Negative Ur Barbiturates Screen Negative U Tricyclic Antidepress Negative Ur Phencyclidine Scrn Negative Ur Amphetamines Screen Negative U Methamphetamines Scrn Negative U Benzodiazepines Scrn Negative Urine Cocaine Screen Negative U Cannabinoids Screen Negative Ethanol Quant Acetone, Qual Influenza Type A Ag Influenza Type B Ag SARS-CoV-2 Ag (CV2AG) POC Glucose 369 H 12/22/23 12/22/23 09:40 09:15 WBC 6.3 RBC 4.58 L Hgb 14.7 Hct 43.7 MCV 95.4 H MCH 32.1 MCHC 33.6 RDW 12.7 Plt Count 122 L MPV 11.2 Neut % (Auto) Lymph % (Auto) [place] % (Auto) Eos % (Auto) Baso % (Auto) Neut # (Auto) Lymph # (Auto) [place] # (Auto) Eos # (Auto) Baso # (Auto) Abs Immat Gran (auto) Seg Neuts % (Manual) 85.0 H Lymphocytes % (Manual) 9.0 L Monocytes % (Manual) 6.0 Eosinophils % (Manual) 0.0 L Basophils % (Manual) 0.0 L Imm/Tot Granulo (auto) Neutrophils # (Manual) 5.35 Lymphocytes # (Manual) 0.56 L Monocytes # (Manual) 0.37 Eosinophils # (Manual) 0.00 Basophils # (Manual) 0.00 PT 9.8 INR <0.93 APTT 22.8 D-Dimer 0.59 VBG pH 7.330 VBG pCO2 30.0 L Sodium 138 Potassium 4.5 Chloride 98 Carbon Dioxide 20.0 L Anion Gap 24.5 BUN 14.0 Creatinine 0.98 Est GFR ( Amer) >60 Est GFR (Non-Af Amer) >60 BUN/Creatinine Ratio 14.3 Glucose 313 H Estimat Average Glucose Hemoglobin A1c Calcium 9.5 Magnesium 1.3 L Total Bilirubin 0.8 AST 32 ALT 19 Alkaline Phosphatase 59 Total Creatine Kinase 110 Troponin I High Sens 33.2 NT-Pro-B Natriuret Pep 159.0 Total Protein 7.0 Albumin 3.9 Globulin 3.1 Albumin/Globulin Ratio 1.3 Triglycerides Cholesterol LDL Cholesterol, Calc VLDL Cholesterol HDL Cholesterol Cholesterol/HDL Ratio TSH 0.614 Urine Opiates Screen Ur Buprenorphine Scrn Ur Oxycodone Screen Urine Methadone Screen Ur Barbiturates Screen U Tricyclic Antidepress Ur Phencyclidine Scrn Ur Amphetamines Screen U Methamphetamines Scrn U Benzodiazepines Scrn Urine Cocaine Screen U Cannabinoids Screen Ethanol Quant 86 Acetone, Qual Negative Influenza Type A Ag Negative Influenza Type B Ag Negative SARS-CoV-2 Ag (CV2AG) Negative POC Glucose Discharge Plan Discharge Disposition: Home, Self-Care Discharge Medications: Continued clonidine HCl 0.3 mg tablet 0.3 mg PO BID omeprazole 20 mg capsule,delayed release(DR/EC) 20 mg PO DAILY prazosin 1 mg capsule 1 mg PO BID (DME) Dexcom G6 Sensor Device MISCELLANEOUS (DME) Dexcom G6 Transmitter Device MISCELLANEOUS (DME) Omnipod 5 G6 Pods (Gen 5) Cartridge SUBCUT Activity: increase activity as tolerated Diet: advance to your usual diet Print Language: Georgian Patient Instructions: Dehydration (GEN), Diabetic Ketoacidosis (DC) Activity Restrictions/Additional Instructions: Return to work ThursdayDec 24 Forms: Portal Instructions Follow Up Appointments: Please follow up with Naomi Mishra CNP at [facility] (primary Care) She can request Echo results from us on follow up Please return to work Thursday12/25/23
--- NOTE | 2023-12-23 10:08 | SWNOTE1 ---
SW met with pt to discuss dc needs and if pt would like resources in regards to alcohol rehab or AA meetings. 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 He did voice he is now here for another 2-3 weeks since someone was fired. SW did ask if he would like any resources in regards to AA meetings or inpt/outpt alcohol rehab. Pt voiced he does not want any resources. Does not feel alcohol intake is an issue at this time. SW to follow as needed. Pt is waiting for a ride back to work from his employer. SW did call trips, but they could not be here until 1:00. Pt voiced his employer is working on getting someone here to transport him.
--- NOTE | 2023-12-23 10:35 | CM.NOTE ---
Rounds made with Dr. Hernandez, discussed with pt discharge to home today. Pt knowledgeable with insulin pump and f/u closely with PCP. Pt denies need for diabetic education. Pt's A1C 6.[address] Hernandez discussed with pt he could return to work on Sunday 12/24.
--- NOTE | 2023-12-23 12:20 | NUTR.NU ---
Pt is a Type 1 diabetic w/insulin pump. He is comfortable w/diabetic diet guidelines and declines education at this time. Planned discharge this date. Will continue to follow PRN.
--- NOTE | 2023-12-24 13:03 | CM.DCFOLLOWU ---
1st attempt 12/24/23, no answer
--- NOTE | 2023-12-25 10:27 | CM.DCFOLLOWU ---
Person spoke with:patient How are you feeling? well, back to work How is your pain?none Did you understand your discharge instructions? yes Do you have any questions about your discharge instructions? no Were you given any prescriptions at discharge? no Were you able to get your prescriptions filled? N/A Do you understand how to take your medications as ordered? yes Do you have any questions about your follow up appointment and do you plan to keep your follow up appointment? no questions, reviewed follow up Is there anything else that you would like to discuss?no Questions/Comments/Concerns/Other:none
== END 2023-12-23 10:20 | disposition home or self-care (01) | DRG 640 ==
LOC: ER 12:07 → ICU 12:40
PROVIDERS: Admitting Provider Family Medicine; Emergency Provider Emergency Medicine; Visit Provider Family Medicine
DX: E86.0 Dehydration (principal); E10.10 Type 1 diabetes mellitus with ketoacidosis without coma; F10.20 Alcohol dependence, uncomplicated; Y90.4 Blood alcohol level of 80-99 mg/100 ml; R00.0 Tachycardia, unspecified; E83.42 Hypomagnesemia; I10 Essential (primary) hypertension; R12 Heartburn; B34.9 Viral infection, unspecified; Z79.899 Other long term (current) drug therapy; F17.200 Nicotine dependence, unspecified, uncomplicated; Z79.4 Long term (current) use of insulin; Z96.41 Presence of insulin pump (external) (internal); Z20.822 Contact with and (suspected) exposure to COVID-19
CPT/HCPCS: 36415; 70450; 71045; 80048; 80053; 80061; 80307; 80320; 82009; 82550; 82800; 82948; 83036; 83735; 83880; 84443; 84484; 85007; 85025; 85027; 85378; 85610; 85730; 87804; 87811; 93005; 93306; 94761; 96361; 96366; 96367; 96375; 96376; 99285; J2060; J2405; J3411; J3475